=== PATIENT | male | born 1970 | race Caucasian/White ===

== ENCOUNTER 2022-02-12 18:51 | Emergency (ER) | payer OTHER ==
[~2022-02-12] VITALS: Ht 167.6 cm; Wt 98.0 kg
[2022-02-13 02:24] VITALS: BP 128/65
== END 2022-02-13 01:24 | disposition home or self-care (01) ==
LOC: ER 18:51
DX: M79.89 Other specified soft tissue disorders (principal); M25.572 Pain in left ankle and joints of left foot
CPT/HCPCS: 93971; 99284